=== PATIENT | female | born 1955 | race Caucasian/White ===

== ENCOUNTER → 2017-06-16 | Outpatient (CLI) | payer BC ==
[~2017-06-16] MED LIST: ATV1HP PO; DOCU100C PO; ESTRADOIL PO; POLY335025 PO; TRAM-10 PO; WHEAPOW13 PO
--- NOTE | 2017-06-17 15:58 | MAMMOGRAPHY REPORT ---
BILATERAL DIGITAL SCREENING MAMMOGRAM TOMOSYNTHESIS WITH CAD: 06/16/2017 CLINICAL HISTORY: Routine screening. Patient has no complaints. TECHNIQUE: Bilateral breast tomosynthesis in addition to standard 2D mammography was performed. Curre nt study was also evaluated with a Computer Aided Detection (CAD) system. COMPARISON: Comparison is made to exams dated: 06/12/2016 mammogram - [facility], mammogram, 05/17/2015 mammogram, 12/27/2013 mammogram, 06/14/2012 mammogram, and 06/11/2011 mammo gram. BREAST COMPOSITION: There are scattered areas of fibroglandular density in both breasts. FINDINGS: There is a 7 mm non-circumscribed mass in the upper outer posterior right breast, for whic h additional targeted ultrasound and possible additional mammographic views is recommended. No other suspicious mass, architectural distortion or cluster of microcalcifications is seen bilatera llalexa. IMPRESSION: ACR BI-RADS CATEGORY 0: INCOMPLETE EVALUATION: NEED ADDITIONAL IMAGING EVALUATION The 7 mm non-circumscribed mass in the right upper outer posterior breast needs additional evaluation . The patient will be called to schedule an appointment. Approximately 10% of breast cancers are not detected with mammography. A negative mammographic report should not delay biopsy if a clinically suggestive mass is present. Josephine Pete M.D. ay/:06/16/2017 16:43:23 Assistant Professor Nurse Education: Ban RODRIGUEZ(Roly)(Maik)([place]), [facility] letter sent: Addl Imaging 0 BI-RADS Code: ACR BI-RADS Category 0: Incomplete Evaluation: Need Additional Imaging Evaluation
== END | disposition home or self-care (01) ==
LOC: C.MAMM 14:08
PROVIDERS: ATTEND Family Medicine
DX: Z12.31 Encounter for screening mammogram for malignant neoplasm of breast (principal); N63 Unspecified lump in breast

== ENCOUNTER → 2017-07-01 | Outpatient (CLI) | payer BC ==
--- NOTE | 2017-07-01 16:10 | MAMMOGRAPHY REPORT ---
ULTRASOUND OF RIGHT BREAST: 07/01/2017 CLINICAL HISTORY: Call back from screening mammography for a non-circumscribed 7 mm mass in the upper outer posterior right breast. COMPARISON: Comparison is made to exams dated: 06/16/2017 mammogram, 06/12/2016 mammogram - [facility], 06/07/2015 mammogram, 05/17/2015 mammogram, 12/27/2013 mammogram, and 06/14/2012 mammo gram. FINDINGS: Targeted ultrasound was performed in the upper outer quadrant of the right breast. In the 9:00 axis, 5 cm from the nipple, there is a small cluster of anechoic simple cysts measuring 5.4 x 3 .4 x 5.5 mm. This correlates well with the non-circumscribed or lobulated mammographic mass and is b enign. No further workup is needed at this time. IMPRESSION: ACR BI-RADS CATEGORY 2: BENIGN There is a small cluster of simple cysts versus cluster of microcysts in the 9:00 axis of the right b reast, measuring 5.5 mm, thought to correlate with the non-circumscribed mammographic mass. This is benign and no further workup is needed at this time. Recommend routine screening mammography in one year. Josephine Pete M.D. ay/:07/01/2017 14:39:06 [employer] Sergeant: Dr. Josephine Pete, [facility] letter sent: Normal 1/2 BI-RADS Code: ACR BI-RADS Category 2: Benign
== END | disposition home or self-care (01) ==
LOC: C.MAMM 14:08
PROVIDERS: ATTEND Family Medicine
DX: N63 Unspecified lump in breast (principal)